=== PATIENT | male | born 1980 | race Caucasian/White ===

== ENCOUNTER 2021-08-08 19:43 | Inpatient (IN) ==
[2021-08-09] MEDS ORDERED: *HR* HYDROmorphone (PF) 1 MG/ML SYRINGE IVP ONE ×3 (00:29→15:40)
[2021-08-09] MEDS ORDERED: D5% in Water 1,000 ML IVC PRN (00:33)
[2021-08-09] MEDS ORDERED: *HR* Dextrose 50 % in Water (Syg) 50 ML SYRINGE IVP PRN (00:33)
[2021-08-09] MEDS ORDERED: Dextrose Gel 15 GM/37.5 ML TUBE PO PRN ×2 (00:33)
[2021-08-09] MEDS ORDERED: Ondansetron 4 MG/2 ML VIAL IVP PRN (00:34)
[2021-08-09] MEDS ORDERED: Naloxone 0.4 MG/ML INJ IVP PRN (00:34)
[2021-08-09] MEDS ORDERED: Melatonin 3 MG TABLET PO PRN (00:34)
[2021-08-09 02:22] LABS: Influenza A PCR Negative (Negative); Influenza B PCR Negative (Negative); Resp. Syncytial Virus PCR Negative (Negative)
[2021-08-09 02:23] LABS: SARS-CoV-2 by PCR (In House) Negative (Negative)
[2021-08-09 05:05] LABS: Basophils # 0.1 K/mcL (0.0-0.2); Basophils % 0.7 %; Eosinophils # 0.2 K/mcL (0.0-0.6); Eosinophils % 1.5 %; Hematocrit 32.4 % (37.5-50.1); Hemoglobin 10.6 g/dL (12.9-16.9); Immature Granulocytes % 0.5 % (0-4); Lymphocytes % 7.3 %; Mean Corpuscular HGB Conc 32.7 g/dL (31.6-35.5); Mean Corpuscular Volume 88.5 fL (83.0-100.0); Mean Platelet Volume 11.4 fL (9.4-12.4); Monocytes # 1.8 K/mcL (0.0-1.3); Monocytes % 12.8 %; Neutrophils # 10.5 K/mcL (1.6-8.9); Platelet Count 143 K/mcL (140-400); Red Blood Count 3.66 M/mcL (4.19-5.50); Red Cell Distribution Width 13.8 % (11.5-14.5); Segmented Neutrophils % 77.2 %; White Blood Count 13.6 K/mcL (4.3-11.1)
[2021-08-09 05:31] LABS: Albumin/Globulin Ratio 1.4 (1.1-2.2); Bilirubin,Total 0.5 mg/dL (0.3-1.0); Calcium 9.4 mg/dL (8.6-10.3); Globulin 2.9 g/dL (2.4-3.5); Potassium 4.7 mEq/L (3.5-5.1); Total Protein 6.9 g/dL (6.4-8.9)
[2021-08-09] MEDS: *HR* Heparin 5,000 UNIT/ML VIAL SQ SCH ×2 (05:37→16:40)
[2021-08-09] MEDS: Insulin LISPRO 300 UNITS/3 ML VIAL SUBQ SCH ×3 (05:39→16:43)
[2021-08-09] MEDS: amLODIPine 5 MG TABLET PO SCH (07:30)
[2021-08-09] MEDS: carvediloL 25 MG TABLET PO SCH ×2 (07:30→16:38)
[2021-08-09] MEDS: cloNIDine HCL 0.1 MG TABLET PO SCH ×3 (07:31→20:10)
[2021-08-09] MEDS: lisinopriL 20 MG TABLET PO SCH ×2 (07:31→20:11)
[2021-08-09] MEDS ORDERED: *HR* HYDROmorphone (PF) 1 MG/ML SYRINGE IVP PRN (07:43)
[2021-08-09] MEDS: Ondansetron 4 MG/2 ML VIAL IVP PRN ×2 (08:37→20:10)
[2021-08-09] MEDS ORDERED: *HR* OxyCODONE Immed Rel 5 MG TABLET PO PRN (12:22)
[2021-08-09] MEDS: *HR* HYDROmorphone 2 MG/ML SYRINGE IVP PRN ×2 (14:18→20:08)
[2021-08-09] MEDS ORDERED: *HR* Propofol 200 MG/20 ML VIAL IVP ONE (14:41)
[2021-08-09] MEDS ORDERED: Lidocaine -MPF 2% 5 ML VIAL ONE (14:43)
[2021-08-09] MEDS ORDERED: *HR* FentaNYL (PF) 100 MCG/2 ML VIAL ONE (14:44)
[2021-08-09] MEDS ORDERED: *HR* Midazolam HCl 2 MG/2 ML VIAL ONE (14:44)
[2021-08-09] MEDS ORDERED: Ropivacaine/PF 0.5% 30 ML VIAL ONE (15:03)
[2021-08-09] MEDS ORDERED: Ondansetron 4 MG/2 ML VIAL IVP ONE (15:03)
[2021-08-09] MEDS ORDERED: Bupivacaine/EPI 1:200k 0.25% 50 ML VIAL ONE (15:24)
[2021-08-09] MEDS ORDERED: *HR* Labetalol 20 MG/4 ML SYRINGE IVP PRN (15:32)
[2021-08-09] MEDS ORDERED: *HR* Promethazine 25 MG/ML VIAL IM PRN (15:33)
[2021-08-09] MEDS: 0.9 % Sodium Chloride 1,000 ML IVC SCH (15:49)
[2021-08-09] MEDS: Insulin DETEMIR 100 UNIT/ML X5UNITS SUBQ SCH (18:19)
[2021-08-09] MEDS: Acetaminophen IV 1,000 MG/100 ML BAG IVPB SCH (18:20)
[2021-08-09] MEDS: *HR* OxyCODONE Immed Rel 5 MG TABLET PO PRN (18:23)
[2021-08-09] MEDS ORDERED: cloNIDine HCL 0.1 MG TABLET PO SCH (21:00)
[2021-08-10] MEDS: Acetaminophen IV 1,000 MG/100 ML BAG IVPB SCH ×4 (00:05→17:51)
[2021-08-10] MEDS: *HR* HYDROmorphone 2 MG/ML SYRINGE IVP PRN ×3 (00:09→12:19)
[2021-08-10] MEDS: Insulin LISPRO 300 UNITS/3 ML VIAL SUBQ SCH ×4 (00:13→17:51)
[2021-08-10] MEDS: *HR* OxyCODONE Immed Rel 5 MG TABLET PO PRN ×2 (00:57→08:31)
[2021-08-10] MEDS: Ondansetron 4 MG/2 ML VIAL IVP PRN ×2 (05:23→18:01)
[2021-08-10] MEDS: *HR* Heparin 5,000 UNIT/ML VIAL SQ SCH ×2 (05:24→18:14)
[2021-08-10] MEDS: carvediloL 25 MG TABLET PO SCH ×2 (07:07→17:51)
[2021-08-10] MEDS: amLODIPine 5 MG TABLET PO SCH (07:07)
[2021-08-10] MEDS: cloNIDine HCL 0.1 MG TABLET PO SCH ×3 (07:07→20:30)
[2021-08-10] MEDS: lisinopriL 20 MG TABLET PO SCH ×2 (07:07→20:28)
[2021-08-10 07:17] LABS: Albumin/Globulin Ratio 1.3 (1.1-2.2); Bilirubin,Total 0.5 mg/dL (0.3-1.0); Calcium 9.5 mg/dL (8.6-10.3); Globulin 3.1 g/dL (2.4-3.5); Potassium 4.9 mEq/L (3.5-5.1); Total Protein 7.1 g/dL (6.4-8.9)
[2021-08-10 07:19] LABS: Basophils # 0.1 K/mcL (0.0-0.2); Basophils % 0.8 %; Eosinophils # 0.2 K/mcL (0.0-0.6); Eosinophils % 1.3 %; Hemoglobin 10.2 g/dL (12.9-16.9); Immature Granulocytes % 1.1 % (0-4); Lymphocytes # 1.8 K/mcL (0.6-4.6); Lymphocytes % 12.5 %; Mean Corpuscular HGB Conc 32.9 g/dL (31.6-35.5); Mean Corpuscular Hemoglobin 29.5 pg (28.0-33.3); Mean Corpuscular Volume 89.6 fL (83.0-100.0); Mean Platelet Volume 11.6 fL (9.4-12.4); Monocytes # 1.8 K/mcL (0.0-1.3); Platelet Count 189 K/mcL (140-400); Red Blood Count 3.46 M/mcL (4.19-5.50); Red Cell Distribution Width 13.7 % (11.5-14.5); Segmented Neutrophils % 71.3 %
[2021-08-10] MEDS ORDERED: 0.9 % Sodium Chloride 250 ML IVC PRN ×2 (08:27→19:52)
[2021-08-10] MEDS ORDERED: 0.9 % Sodium Chloride 1,000 ML PRIME SCH ×2 (08:30→19:52)
[2021-08-10] MEDS: 0.9 % Sodium Chloride 1,000 ML IVC SCH ×4 (08:33→20:30)
[2021-08-10 09:06] LABS: Hepatitis A Antibody IgM Nonreactive (Nonreactive); Hepatitis B Core IgM Nonreactive (Nonreactive); Hepatitis C Virus Antibody Nonreactive (Nonreactive)
[2021-08-10 10:04] LABS: Hepatitis B Surface Antibody 713.39 mIU/mL
[2021-08-10 10:13] LABS: Hepatitis B Surface Antigen Nonreactive (Nonreactive)
[2021-08-10 12:01] LABS: Hepatitis B Surface Antigen Nonreactive (Nonreactive)
[2021-08-10] MEDS ORDERED: *HR* FentaNYL (PF) 100 MCG/2 ML VIAL ONE (13:54)
[2021-08-10] MEDS ORDERED: *HR* Midazolam HCl 2 MG/2 ML VIAL ONE (13:54)
[2021-08-10] MEDS ORDERED: *HR* Propofol 200 MG/20 ML VIAL IVP ONE (13:54)
[2021-08-10] MEDS ORDERED: Lidocaine -MPF 2% 5 ML VIAL ONE (13:56)
[2021-08-10] MEDS ORDERED: Ondansetron 4 MG/2 ML VIAL ONE (13:57)
[2021-08-10] MEDS ORDERED: Bupivacaine/EPI 1:200k 0.25% 50 ML VIAL ONE (14:09)
[2021-08-10] MEDS ORDERED: Ropivacaine/PF 0.5% 30 ML VIAL ONE (14:29)
[2021-08-10] MEDS ORDERED: Clindamycin 900 MG/50 ML 900 MG/50 ML IV.SOLN IVPB STA (15:17)
[2021-08-10] MEDS ORDERED: EPHEDrine 50 MG/ML VIAL ONE (15:22)
[2021-08-10] MEDS ORDERED: *HR* Phenylephrine 10 MG/ML VIAL ONE (15:28)
[2021-08-10] MEDS ORDERED: Ondansetron 4 MG/2 ML VIAL IVP ONE (16:51)
[2021-08-10] MEDS: Insulin DETEMIR 100 UNIT/ML X5UNITS SUBQ SCH (17:51)
[2021-08-10] MEDS ORDERED: *HR* HYDROmorphone 2 MG/ML SYRINGE IVP PRN (19:52)
[2021-08-10] MEDS ORDERED: *HR* Dextrose 50 % in Water (Syg) 50 ML SYRINGE IVP PRN (19:52)
[2021-08-10] MEDS ORDERED: Melatonin 3 MG TABLET PO PRN (19:52)
[2021-08-10] MEDS ORDERED: Dextrose Gel 15 GM/37.5 ML TUBE PO PRN ×2 (19:52)
[2021-08-10] MEDS ORDERED: Ondansetron 4 MG/2 ML VIAL IVP PRN (19:52)
[2021-08-10] MEDS ORDERED: Naloxone 0.4 MG/ML INJ IVP PRN (19:52)
[2021-08-10] MEDS ORDERED: D5% in Water 1,000 ML IVC PRN (19:52)
[2021-08-10] MEDS ORDERED: *HR* Labetalol 20 MG/4 ML SYRINGE IVP PRN (19:52)
[2021-08-10] MEDS ORDERED: *HR* Promethazine 25 MG/ML VIAL IM PRN (19:52)
[2021-08-10] MEDS ORDERED: *HR* OxyCODONE Immed Rel 5 MG TABLET PO PRN (19:52)
[2021-08-10] MEDS ORDERED: cloNIDine HCL 0.1 MG TABLET PO SCH (21:00)
[2021-08-11] MEDS: Acetaminophen IV 1,000 MG/100 ML BAG IVPB SCH ×2 (00:07→05:26)
[2021-08-11] MEDS: Insulin LISPRO 300 UNITS/3 ML VIAL SUBQ SCH ×3 (00:13→11:37)
[2021-08-11] MEDS: *HR* OxyCODONE Immed Rel 5 MG TABLET PO PRN ×2 (04:14→11:34)
[2021-08-11] MEDS: 0.9 % Sodium Chloride 1,000 ML IVC SCH ×2 (04:17→11:37)
[2021-08-11] MEDS ORDERED: *HR* Heparin 5,000 UNIT/ML VIAL SQ SCH (06:00)
[2021-08-11 07:46] VITALS: TEMP 98.3
[2021-08-11] MEDS ORDERED: carvediloL 25 MG TABLET PO SCH (08:00)
[2021-08-11] MEDS ORDERED: amLODIPine 5 MG TABLET PO SCH (09:00)
[2021-08-11] MEDS: lisinopriL 20 MG TABLET PO SCH (09:44)
[2021-08-11] MEDS: cloNIDine HCL 0.1 MG TABLET PO SCH (09:45)
[2021-08-11 12:49] VITALS: BP 155/78; PULSE 91; O2SAT 98
[2021-08-11] MEDS ORDERED: Insulin DETEMIR 100 UNIT/ML X5UNITS SUBQ SCH (18:00)
== END 2021-08-11 19:17 | disposition home or self-care (01) | DRG 503 ==
LOC: 2ANU → SUATTDRO 23:44
PROVIDERS: ADMIT Internal Medicine; ATTEND Internal Medicine